=== PATIENT | female | born 1935 | race Caucasian/White ===

== ENCOUNTER 2018-03-09 12:48 | Inpatient (IN) | payer MEDICARE, OTHER ==
[2018-03-09 14:01] VITALS: BMI 32.4
[2018-03-09] MEDS ORDERED: Milk Of Magnesia 30 ML UDCUP PO PRN ×2 (14:36→14:41)
[2018-03-09] MEDS ORDERED: diphenhydrAMINE 25 MG CAP PO PRN (14:41)
[2018-03-09] MEDS ORDERED: Lorazepam 0.5 MG TAB PO PRN (14:41)
[2018-03-09] MEDS ORDERED: Lorazepam 1 MG TAB PO PRN (14:41)
[2018-03-09] MEDS: HYDROcodone/Acetaminophen 7.5/325 mg Tablet PO PRN ×3 (15:29→23:26)
[2018-03-09] MEDS: Promethazine 25 MG TAB PO PRN ×3 (15:29→23:26)
[2018-03-09] MEDS: metFORMIN 500 MG TAB PO SCH (17:10)
[2018-03-09] MEDS: Ferrous Gluconate 324 MG TAB PO SCH (20:45)
[2018-03-09] MEDS: Docusate 100 MG CAP PO SCH (21:17)
--- NOTE | 2018-03-10 00:40 | HP ---
DATE OF ADMISSION: 03/09/2018 ADMITTING PHYSICIAN: Leslee Hall M.D. REASON FOR ADMISSION: Skilled rehabilitation at [facility] swing bed, status post left total knee replacement. HISTORY OF PRESENT ILLNESS: Ms. Torres is an 82-year-old female with a past medical history of hypertension, hypothyroidism, temporal arteritis on prednisone, insomnia, and hyperlipidemia. Patient presented to [facility] inpatient rehabilitation from [facility] for intermediate care and inpatient physical therapy, status post left total knee replacement that was done by Dr. Thomas on 03/06/2018. Patient was transferred on postop day #3, she had an unremarkable surgery. She started physical therapy and walks using a rolling walker and using a CPM machine while in bed. Due to age and comorbidities, patient was deconditioned and the decision was made to transfer to skilled rehabilitation to continue physical therapy prior to discharge back to home with her . Prior to admission, patient was living at home with , but stated that due to the knee pain, she was unable to perform a lot of easy task such as getting in and out of a car, tying her own shoes, or just performing regular activities of daily living. She is hoping with this surgery, she is able to do ADLs with minimal assistance. Patient denies any abdominal pain. She states she has not had a bowel movement since day of discharge, but she is passing gas. She continues to have left knee pain that is well controlled with [place] that she has been on, she is tolerating a diet. Patient's and son in room concerned about not having the CPM machine. She was using while in [place]. Patient adamant recommended she continue the machine for another 2 weeks, but then stated nurse over there said it was a Medicare breach and they could not take the machine with them. Patient called Dr. Thomas's office when I went to evaluate her and I was able to speak to the PA, who states she would help locate the machine and she is not aware of any Medicare breach issues, as they have lots of the patient's that are able to get machine out. Patient's son in room said once machine is located and he has the okay, he will go diamond picker machine for patient to use. PAST MEDICAL HISTORY: Hypertension, hyperlipidemia, insomnia, temporal arteritis, hypothyroidism. PAST SURGICAL HISTORY: Cholecystectomy, right total knee replacement 08/20/2013 , foot surgery now, left total knee replacement. FAMILY HISTORY: Father and mother with cancer, siblings diagnosed with cancer. SOCIAL HISTORY: Patient is a nonsmoker. She did drink. No illicit drug use. She lives in a home with her . ALLERGIES: CODEINE, TRAMADOL, reaction is upset stomach. MEDICATIONS: Levothyroxine 88 one tab on an empty stomach in the morning Tuesday , Tuesday, and Fridays and half tab to Tuesday, , Tuesday, Tuesday; ferrous gluconate 324 mg b.i.d., multivitamin daily; Phenergan 12.5 mg q.4 p.r.n. nausea and give with hydrocodone; [place] 7.5/325 q.4 p.r.n. pain; Milk of Magnesia 30 mL p.o. b.i.d. p.r.n. constipation; Benadryl 25 p.o. q.3 hours p.r.n. itching, lorazepam 1 mg half tab p.o. at bedtime p.r.n. sleep; trazodone 50 one tab p.o. at bedtime p.r.n. sleep; prednisone 8 mg daily; Celebrex 200 daily; Coreg 6.25 daily; metformin 500 b.i.d.; Lovenox 40 subcutaneous daily. REVIEW OF SYSTEMS: General: The patient denies any fever or chills. Patient denies nausea, vomiting. HEENT: No vision changes, hearing changes, dysphagia. Chest: No chest pain, shortness of breath, palpitation, or dizziness. Respiratory: Denies cough, shortness of breath, or wheezing. Abdomen: Denies abdominal pain, constipation, or diarrhea. States she has not had a bowel movement in the past 3 days, but that is normal for her. Genitourinary: Denies dysuria or hematuria. Skin: Denies easy bruising. Musculoskeletal: Complains of left knee pain and stiffness. Neurologic: Denies any memory loss, hallucination, or delusions. PHYSICAL EXAMINATION: VITAL SIGNS: Temperature 99.0, pulse 85, respirations 22, O2 sat 93% on room air, blood pressure 120/57. GENERAL APPEARANCE: Alert, awake, oriented x3. Healthy appearing female, pleasant, in no apparent distress, lying comfortably in bed. HEENT: Normocephalic, atraumatic. PERRL. Nonischemic sclerae. Oral mucous membranes moist. NECK: Supple, no JVD, no lymphadenopathy. CARDIOVASCULAR: S1, S2, no murmurs. LUNGS: Clear to auscultation bilaterally in all lung vernon. No wheezing, no rhonchi, no rales. ABDOMEN: Positive bowel sounds, soft, normoactive bowel sounds. Nontender. Negative for rebound or guarding. MUSCULOSKELETAL: Left knee swelling with Aquacel dressing in place. Mild surrounding erythema, moderately tender. EXTREMITIES: Right lower extremity, no swelling, no calf tenderness, no erythema. NEUROLOGICAL: Alert, awake, oriented x3. No focal deficits. ASSESSMENT: 1. Left knee degenerative osteoarthritis, status post left total knee arthroplasty. 2. Hypertension. 3. Diabetes, type 2. 4. History of temporal arteritis. 5. Hypothyroidism. 6. Gastroesophageal reflux disease. 7. Anxiety. 8. Insomnia. PLAN: Patient is being admitted to [facility] swing bed for rehabilitation and gait strengthening. We will consult physical therapy for strengthening in order to gain modified independence with gait. We will consult Occupational Therapy to help with activities of daily living prior to returning to her home. We will follow discharge instructions by Dr. Thomas to leave Aquacel dressing in place x1 week, then leave ashley covered with dry Gauze and ACEs and removed ashley on 03/20/2018. Patient to follow up with Dr. Thomas once discharged from swing bed. We will resume patient's home medications. We will monitor blood pressure closely. We will manage pain with [place] and nausea with Phenergan as needed for constipation. We will place patient on Colace b.i.d. We will monitor closely for any medical comorbidities that may interfere with her recovery. We will await Dr. Thomas's PA and patient's son to help get CPM machine to facility and once it is in facility, physical therapy to help manage this. We will place the patient on GI and deep venous thrombosis prophylaxis with Protonix, lovenox and compression stocking to right leg. Extended length of stay 2-3 weeks. DISPOSITION: Home. CODE STATUS: Patient is a FULL CODE. MTDD
[2018-03-10] MEDS: Promethazine 25 MG TAB PO PRN ×5 (03:55→20:28)
[2018-03-10] MEDS: HYDROcodone/Acetaminophen 7.5/325 mg Tablet PO PRN ×5 (03:56→20:28)
[2018-03-10] MEDS: Levothyroxine Sodium 88 MCG TAB PO SCH (06:11)
[2018-03-10] MEDS: metFORMIN 500 MG TAB PO SCH ×2 (08:09→16:16)
[2018-03-10] MEDS: predniSONE 1 MG TAB PO SCH (08:09)
[2018-03-10] MEDS: Carvedilol 6.25 MG TAB PO SCH (08:10)
[2018-03-10] MEDS: CeleCOXIB 100 MG CAP PO SCH (08:10)
[2018-03-10] MEDS: Ferrous Gluconate 324 MG TAB PO SCH ×2 (08:11→20:27)
[2018-03-10] MEDS: Multivit, Therapeutic 1 TAB PO SCH (08:11)
[2018-03-10] MEDS: Enoxaparin Sodium 40 MG/0.4 ML SYRINGE SC SCH (08:11)
[2018-03-10] MEDS: Docusate 100 MG CAP PO SCH ×2 (08:11→20:27)
[2018-03-11] MEDS: HYDROcodone/Acetaminophen 7.5/325 mg Tablet PO PRN ×6 (00:50→22:25)
[2018-03-11] MEDS: Promethazine 25 MG TAB PO PRN ×6 (00:51→22:25)
[2018-03-11] MEDS: Levothyroxine Sodium 88 MCG TAB PO SCH (05:27)
[2018-03-11] MEDS: CeleCOXIB 100 MG CAP PO SCH (08:49)
[2018-03-11] MEDS: predniSONE 1 MG TAB PO SCH (08:49)
[2018-03-11] MEDS: Carvedilol 6.25 MG TAB PO SCH (08:50)
[2018-03-11] MEDS: Enoxaparin Sodium 40 MG/0.4 ML SYRINGE SC SCH ×2 (08:50→13:45)
[2018-03-11] MEDS: Multivit, Therapeutic 1 TAB PO SCH (08:50)
[2018-03-11] MEDS: metFORMIN 500 MG TAB PO SCH ×2 (08:50→18:06)
[2018-03-11] MEDS: Docusate 100 MG CAP PO SCH ×2 (08:50→20:29)
[2018-03-11] MEDS: Ferrous Gluconate 324 MG TAB PO SCH ×2 (08:50→20:28)
[2018-03-12] MEDS: Promethazine 25 MG TAB PO PRN ×6 (02:25→22:07)
[2018-03-12] MEDS: HYDROcodone/Acetaminophen 7.5/325 mg Tablet PO PRN ×6 (02:26→22:00)
[2018-03-12] MEDS: Levothyroxine Sodium 88 MCG TAB PO SCH (06:24)
[2018-03-12] MEDS: Carvedilol 6.25 MG TAB PO SCH (08:31)
[2018-03-12] MEDS: Ferrous Gluconate 324 MG TAB PO SCH ×2 (08:31→21:29)
[2018-03-12] MEDS: metFORMIN 500 MG TAB PO SCH ×2 (08:31→17:08)
[2018-03-12] MEDS: Docusate 100 MG CAP PO SCH ×2 (08:31→20:26)
[2018-03-12] MEDS: CeleCOXIB 100 MG CAP PO SCH (08:31)
[2018-03-12] MEDS: Enoxaparin Sodium 40 MG/0.4 ML SYRINGE SC SCH (08:32)
[2018-03-12] MEDS: Multivit, Therapeutic 1 TAB PO SCH (08:32)
[2018-03-12] MEDS: predniSONE 1 MG TAB PO SCH (08:36)
[2018-03-12] MEDS ORDERED: predniSONE 5 MG TAB PO SCH (09:00)
[2018-03-12] MEDS ORDERED: predniSONE 1 MG TAB PO SCH (09:00)
[2018-03-12] MEDS ORDERED: Promethazine 25 MG TAB ONE ×3 (14:05→22:13)
[2018-03-12] MEDS: traZODone HCl 50 MG TAB PO PRN (21:59)
[2018-03-13] MEDS ORDERED: Promethazine 25 MG TAB ONE (03:10)
[2018-03-13] MEDS: HYDROcodone/Acetaminophen 7.5/325 mg Tablet PO PRN ×5 (03:16→20:46)
[2018-03-13] MEDS: Promethazine 25 MG TAB PO PRN ×3 (03:17→20:47)
[2018-03-13] MEDS: Levothyroxine Sodium 88 MCG TAB PO SCH (05:44)
[2018-03-13] MEDS ORDERED: predniSONE 1 MG TAB PO SCH (08:00)
[2018-03-13] MEDS: metFORMIN 500 MG TAB PO SCH ×2 (08:13→15:56)
[2018-03-13] MEDS: Carvedilol 6.25 MG TAB PO SCH (08:14)
[2018-03-13] MEDS: Enoxaparin Sodium 40 MG/0.4 ML SYRINGE SC SCH (08:15)
[2018-03-13] MEDS: Docusate 100 MG CAP PO SCH ×2 (08:16→20:48)
[2018-03-13] MEDS: CeleCOXIB 100 MG CAP PO SCH (08:17)
[2018-03-13] MEDS: Ferrous Gluconate 324 MG TAB PO SCH ×2 (08:17→20:48)
[2018-03-13] MEDS: Multivit, Therapeutic 1 TAB PO SCH (08:17)
[2018-03-13] MEDS ORDERED: Lorazepam 0.5 MG TAB PO PRN (10:00)
[2018-03-13] MEDS ORDERED: Milk Of Magnesia 30 ML UDCUP PO PRN (10:00)
[2018-03-13] MEDS: Acetaminophen 325 MG TAB PO PRN (15:56)
[2018-03-13] MEDS: Lorazepam 1 MG TAB PO PRN (20:45)
[2018-03-14] MEDS: Promethazine 25 MG TAB PO PRN ×6 (01:05→23:00)
[2018-03-14] MEDS: HYDROcodone/Acetaminophen 7.5/325 mg Tablet PO PRN ×6 (01:05→22:59)
[2018-03-14] MEDS: Levothyroxine Sodium 88 MCG TAB PO SCH (05:08)
[2018-03-14] MEDS: Enoxaparin Sodium 40 MG/0.4 ML SYRINGE SC SCH (08:28)
[2018-03-14] MEDS: Multivit, Therapeutic 1 TAB PO SCH (08:29)
[2018-03-14] MEDS: predniSONE 1 MG TAB PO SCH (08:29)
[2018-03-14] MEDS: predniSONE 5 MG TAB PO SCH (08:29)
[2018-03-14] MEDS: CeleCOXIB 100 MG CAP PO SCH (08:29)
[2018-03-14] MEDS: Carvedilol 6.25 MG TAB PO SCH (08:29)
[2018-03-14] MEDS: Ferrous Gluconate 324 MG TAB PO SCH ×2 (08:29→21:06)
[2018-03-14] MEDS: Docusate 100 MG CAP PO SCH ×2 (08:29→21:06)
[2018-03-14] MEDS: metFORMIN 500 MG TAB PO SCH ×2 (08:29→16:51)
[2018-03-14] MEDS: Lorazepam 1 MG TAB PO PRN (21:06)
[2018-03-14] MEDS: Acetaminophen 325 MG TAB PO PRN (23:39)
[2018-03-15] MEDS: traZODone HCl 50 MG TAB PO PRN (00:42)
[2018-03-15] MEDS: Promethazine 25 MG TAB PO PRN ×5 (04:38→21:47)
[2018-03-15] MEDS: HYDROcodone/Acetaminophen 7.5/325 mg Tablet PO PRN ×5 (04:38→21:48)
[2018-03-15] MEDS: Levothyroxine Sodium 88 MCG TAB PO SCH (05:26)
[2018-03-15] MEDS: CeleCOXIB 100 MG CAP PO SCH (08:38)
[2018-03-15] MEDS: predniSONE 5 MG TAB PO SCH (08:39)
[2018-03-15] MEDS: metFORMIN 500 MG TAB PO SCH ×2 (08:39→17:14)
[2018-03-15] MEDS: Carvedilol 6.25 MG TAB PO SCH (08:39)
[2018-03-15] MEDS: Multivit, Therapeutic 1 TAB PO SCH (08:39)
[2018-03-15] MEDS: Enoxaparin Sodium 40 MG/0.4 ML SYRINGE SC SCH (08:40)
[2018-03-15] MEDS: predniSONE 1 MG TAB PO SCH (08:40)
[2018-03-15] MEDS: Docusate 100 MG CAP PO SCH ×2 (08:40→20:29)
[2018-03-15] MEDS: Ferrous Gluconate 324 MG TAB PO SCH ×2 (08:41→20:29)
[2018-03-15] MEDS: Lorazepam 1 MG TAB PO PRN (20:28)
[2018-03-16] MEDS: Promethazine 25 MG TAB PO PRN ×3 (01:57→12:03)
[2018-03-16] MEDS: HYDROcodone/Acetaminophen 7.5/325 mg Tablet PO PRN ×3 (01:57→12:02)
[2018-03-16] MEDS: Levothyroxine Sodium 88 MCG TAB PO SCH (05:54)
[2018-03-16 07:15] VITALS: BP 121/80; TEMP 98.4
[2018-03-16] MEDS: predniSONE 1 MG TAB PO SCH (08:41)
[2018-03-16] MEDS: CeleCOXIB 100 MG CAP PO SCH (08:42)
[2018-03-16] MEDS: predniSONE 5 MG TAB PO SCH (08:42)
[2018-03-16] MEDS: Docusate 100 MG CAP PO SCH (08:42)
[2018-03-16] MEDS: Carvedilol 6.25 MG TAB PO SCH (08:42)
[2018-03-16] MEDS: metFORMIN 500 MG TAB PO SCH (08:42)
[2018-03-16] MEDS: Ferrous Gluconate 324 MG TAB PO SCH (08:42)
[2018-03-16] MEDS: Multivit, Therapeutic 1 TAB PO SCH (08:43)
[2018-03-16] MEDS: Enoxaparin Sodium 40 MG/0.4 ML SYRINGE SC SCH (08:45)
[2018-03-16] MEDS: Acetaminophen 325 MG TAB PO PRN (08:46)
--- NOTE | 2018-03-17 04:40 | DIS ---
DATE OF ADMISSION: 03/11/2018 DATE OF DISCHARGE: 03/16/2018. PRIMARY CARE PHYSICIAN: Fatou Cody. DISCHARGING PHYSICIAN: Dr. Leslee Hall. FINAL DIAGNOSES: 1. Gait instability, improving. 2. Status post left total knee replacement with arthroplasty. 3. Hypertension. 4. Diabetes type 2. 5. Hypothyroidism. 6. Anxiety. 7. History of temporal arteritis. 8. Insomnia. DISCHARGE MEDICATIONS: [place] 7.5/325 q.4 x7 days #28; Phenergan 12.5 q.4 p.r.n. nausea give with [place] x7 days #28; levothyroxine 88 one tablet Tuesday, Tuesday, and Fridays half tab Tuesday, , Tuesday, Tuesday; multivitamin; trazodone 50 at bedtime p.r.n. sleep; prednisone 8 mg daily; Celebrex 200 daily; Coreg 6.25 daily; metformin 500 b.i.d.; lorazepam 1 mg half tab p.o. at bedtime. DISCHARGE INSTRUCTIONS: Follow up with PCP within 2 weeks. Follow up with orthopedic surgeon, Dr. Thomas 03/21/2018. Resume physical therapy and occupational therapy with [facility]. FALL PRECAUTIONS: Ambulate with walker as needed. DIET: Diabetic diet. BRIEF HOSPITAL COURSE: Ms. Torres is an 82-year-old female with a past medical history of worsening osteoarthritis of left knee requiring a total knee replacement that was done by Dr. Thomas on 03/06/2018. The patient tolerated this procedure well and was transferred to [facility] for rehabilitation prior to discharge to home. The patient was able to participate with physical therapy and was progressing nicely. She has a and a son who lives in the home who also stayed in the hospital with the patient to take care of her. The patient by day of discharge was able to walk with physical therapy about 150 feet using a rolling walker. The pain was well controlled with the [place] and the nausea was well controlled with the Phenergan. The patient and family requested the patient to go home today and they will follow up with Dr. Thomas on the with the appointment already set up. The patient was subsequently discharged back home in a stable condition with her family members to resume physical therapy on an outpatient basis. CODE STATUS: FULL CODE. DISCHARGE VITAL SIGNS: Temperature 98.4, pulse 85, respirations 16, O2 sat 96% on room air, blood pressure 121/80. MTDD
== END 2018-03-16 13:15 | disposition home or self-care (01) | DRG 561 ==
LOC: MADMS 12:48
PROVIDERS: ADMIT Family Medicine; ATTEND Family Medicine
DX: Z47.1 Aftercare following joint replacement surgery (principal); R53.1 Weakness; I10 Essential (primary) hypertension; E03.9 Hypothyroidism, unspecified; M31.6 Other giant cell arteritis; G47.00 Insomnia, unspecified; E78.5 Hyperlipidemia, unspecified; Z96.653 Presence of artificial knee joint, bilateral
CPT/HCPCS: G8978-GP-CL; G8979-GP-CJ; G8987-GO-CK; G8988-GO-CI; J1650